=== PATIENT | male | born 1995 | race Caucasian/White ===

== ENCOUNTER 2017-11-09 12:01 | Inpatient (IN) | payer OTHER, MEDICAID ==
--- NOTE | 2017-11-09 12:55 | EDPHY ---
H & P Stated Complaint: SI Source: Patient Exam Limitations: No limitations - Personal History Current Tetanus/Diphtheria Vaccine: Yes Current Tetanus Diphtheria and Acellular Pertussis (TDAP): Yes Tetanus Vaccine Date: < 10 years - Medical/Surgical History Hx Asthma: Yes Hx Chronic Respiratory Disease: No Hx Diabetes: No Hx Cardiac Disease: No Hx Renal Disease: No Hx Cirrhosis: No Hx Alcoholism: No Hx HIV/AIDS: No Hx Splenectomy or Spleen Trauma: No Other PMH: Asthma, Occasional Back Pain. Pervasive Developmental Disorder, Schizophrenia. Obesity - Social History Smoking Status: Never smoked Time Seen by Provider: 11/09/17 12:54 HPI/ROS: HPI: This is a 22-year-old male who presents with Chief Complaint: Suicidal ideation Location:psych Quality: Hearing voices Duration: 1 day Signs and Symptoms: + auditory command hallucinations, no visual hallucinations , + suicidal ideation with NO plan, no homicidal ideation, no paranoia Timing: Acute on chronic Severity: Moderate to severe Context: Patient has a history of schizophrenia, pervasive developmental disorder presents with his father with complaints auditory command hallucinations instructing him to kill himself and hurt himself for the last 2 days. Yesterday he started walking out of his bathroom and started hearing " mild voices of suicide" that are telling him to hurt himself. They told him "to kill yourself and hurt yourself". They did not tell him how to hurt himself. Per his father he has had several incidences where the voices were mumbling, and the patient was unable to understand what they were saying. Has nightmares that cause him to wake up in the middle of the night, believes the nightmares are caused by the voices. Denies hurting himself recently. Denies visual hallucinations. He has been drinking and eating appropriately. Stopped "Prizocen ?" in July, 3 months ago. Has been on the same medication regimen for the last 2 years. Father is unsure of recent trigger. Has not had inpatient psychiatric care for 2 years. Started having SI when he was 13 and worsened when he was 17. Follow[address] by Dr[address] Springer, psychiatrist. Patient has no medical complaints currently. Modifying Factors: None Comment: ROS: see HPI Constitutional: No fever, no chills, no weight loss Eyes: No blurred vision Respiratory: No shortness of breath, no cough Cardiovascular: No chest pain Gastrointestinal: No nausea, no vomiting, no diarrhea Genitourinary: No dysuria Extremities: No myalgias Neurologic: No weakness, no numbness Skin: No rashes Hematologic: No bruising, no bleeding MEDICAL/SURGICAL/SOCIAL HISTORY: Medical history: Asthma, Occasional Back Pain, Pervasive Developmental Disorder , Schizophrenia. Obesity Social history: Father at bedside who is his adult daycare coordinator. CONSTITUTIONAL: Obese, polite and cooperative, young adult white male, awake and alert, no obvious distress HEENT: Atraumatic and normocephalic, PERRL, EOMI. Tympanic membranes clear. Oropharynx clear, no exudate and moist pink mucosa. Airway patent. No lymphadenopathy. No meningismus. Cardiovascular: Normal S1/S2, tachycardia, regular rhythm, without murmur rub or gallop. PULMONARY/CHEST: Symmetrical and nontender. Clear to auscultation bilaterally. Good air movement. No accessory muscle usage. ABDOMEN: Soft, nondistended, nontender, no rebound, no guarding, no peritoneal signs, no masses or organomegaly. No CVAT. EXTREMITIES: 2/2 pulses, strength 5/5, no deformities, no clubbing, no cyanosis or edema. NEUROLOGICAL: no focal neuro deficits. GCS 15. SKIN: Warm and dry, no erythema. no rash. Good capillary refill. PSYCH: Relatively good eye contact, no flight of ideas, organized thought process, good insight and judgment, + auditory command hallucinations, no visual hallucinations, + suicidal ideation with NO plan, no homicidal ideation, no paranoia (Kaz,Terra) Constitutional: Initial Vital Signs Temperature (C) 36.8 C 11/09/17 12:06 Heart Rate 125 H 11/09/17 12:06 Respiratory Rate 18 11/09/17 12:06 Blood Pressure 130/88 H 11/09/17 12:06 O2 Sat (%) 93 11/09/17 12:06 O2 Delivery Mode Room Air Allergies/Adverse Reactions: cat dander Allergy (Verified 11/09/17 12:04) cefaclor [From Ceclor] Allergy (Verified 11/09/17 17:27) Rash Home Medications: Medication Instructions Recorded Docusate Sodium [Colace 100 MG (*)] 200 mg PO HS #0 cap 04/29/16 Multivitamins [Multivitamin (*)] 1 each PO DAILY #0 tab 04/29/16 lamoTRIgine [LamICTAL 100 MG (*)] 100 mg PO DAILY #0 tab 04/29/16 Albuterol [Ventolin Hfa Inhaler] 1 - 2 puffs IH Q4-6PRN PRN 11/09/17 Escitalopram Oxalate [Lexapro 10 10 mg PO DAILY 11/09/17 MG] Ibuprofen [Motrin (*)] 200 mg PO Q8H PRN 11/09/17 LORazepam [Ativan (*)] 0.5 mg PO TID 11/09/17 Modafinil [Provigil 100 mg (*)] 100 mg PO BID 11/09/17 Prazosin HCl [Minipress 1mg (*)] 3 mg PO HS 11/09/17 cloZAPine [Clozaril (*)] 200 mg PO BID 11/09/17 Medical Decision Making ED Course/Re-evaluation: Placed on M1 hold upon arrival due to auditory hallucinations commanding patient to harm himself. Labs and UDS ordered. Given Zyprexa 10 mg x1 1400: Labs and UDS reviewed. Medically clear mental health evaluation 1800: End of shift. Signed over to Dr. Cervantes pending mental health evaluation and final disposition. Patient has remained calm and cooperative throughout the shift. This patient was seen under the supervision of my secondary supervising physician. I evaluated care for this patient independently. Discussed this patient with Dr. Cervantes. (Jolanta Mccurdy) Differential Diagnosis: Differential diagnosis includes but is not limited to delusional, psychosis, schizophrenic paranoid type. (Jolanta Mccurdy) Other Provider: The patient is awaiting psychiatric disposition at 6:20 p.m. 7:15 p.m.: The patient has been accepted for inpatient psychiatric hospitalization at [facility] by Dr. Macias. I have filled out the EMTALA transfer form. (Sathya Cervantes) - Data Points Laboratory Results: Laboratory Results 11/09/17 12:28 11/09/17 12:28 11/09/17 11/09/17 11/09/17 12:28 12:28 12:28 WBC 5.23 10^3/uL 10^3/uL (3.80-9.50) RBC 4.67 10^6/uL 10^6/uL (4.40-6.38) Hgb 14.7 g/dL g/dL (13.7-17.5) Hct 42.6 % % (40.0-51.0) MCV 91.2 fL fL (81.5-99.8) MCH 31.5 pg pg (27.9-34.1) MCHC 34.5 g/dL g/dL (32.4-36.7) RDW 13.3 % % (11.5-15.2) Plt Count 141 10^3/uL L 10^3/uL (150-400) MPV 14.2 fL H fL (8.7-11.7) Neut % (Auto) 56.9 % % (39.3-74.2) Lymph % (Auto) 25.0 % % (15.0-45.0) Mclennan % (Auto) 16.3 % H % (4.5-13.0) Eos % (Auto) 0.6 % % (0.6-7.6) Baso % (Auto) 0.8 % % (0.3-1.7) Nucleat RBC Rel Count 0.0 % % (0.0-0.2) Absolute Neuts (auto) 2.98 10^3/uL 10^3/uL (1.70-6.50) Absolute Lymphs (auto) 1.31 10^3/uL 10^3/uL (1.00-3.00) Absolute Monos (auto) 0.85 10^3/uL H 10^3/uL (0.30-0.80) Absolute Eos (auto) 0.03 10^3/uL 10^3/uL (0.03-0.40) Absolute Basos (auto) 0.04 10^3/uL 10^3/uL (0.02-0.10) Absolute Nucleated RBC 0.00 10^3/uL 10^3/uL (0-0.01) Immature Gran % 0.4 % % (0.0-1.1) Immature Gran # 0.02 10^3/uL 10^3/uL (0.00-0.10) Sodium 142 mEq/L mEq/L (135-145) Potassium 4.3 mEq/L mEq/L (3.5-5.2) Chloride 103 mEq/L mEq/L (97-110) Carbon Dioxide 25 mEq/l mEq/l (22-31) Anion Gap 14 mEq/L mEq/L (8-16) BUN 13 mg/dL mg/dL (7-23) Creatinine 0.8 mg/dL mg/dL (0.7-1.3) Estimated GFR > 60 Glucose 100 mg/dL mg/dL (70-100) Calcium 9.7 mg/dL mg/dL (8.5-10.4) Urine Opiates Screen NEGATIVE (NEGATIVE) Urine Barbiturates NEGATIVE (NEGATIVE) Ur Phencyclidine Scrn NEGATIVE (NEGATIVE) Ur Amphetamine Screen NEGATIVE (NEGATIVE) U Benzodiazepines Scrn NEGATIVE (NEGATIVE) Urine Cocaine Screen NEGATIVE (NEGATIVE) U Marijuana (THC) Screen NEGATIVE (NEGATIVE) Ethyl Alcohol < 10 mg/dL mg/dL (0-10) Medications Given: Discontinued Medications Olanzapine (Zyprexa Zydis) 10 mg PO EDNOW ONE Stop: 11/09/17 14:02 Last Admin: 11/09/17 14:48 Dose: 10 mg Departure - Departure Disposition: [facility] IP Clinical Impression: Auditory hallucinations Schizophrenia Qualifiers: Schizophrenia type: schizophreniform disorder Qualified Code(s): 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
[2017-11-09 13:07] LABS: PLATELET COUNT 141 10^3/uL (150-400)
[2017-11-09] MEDS ORDERED: OLANZapine DISINTEGR 10 MG TAB PO ONE (14:01)
[2017-11-09] MEDS ORDERED: ALBUTEROL 60 PUFFS/8 GM MDI IH PRN (21:42)
[2017-11-09] MEDS ORDERED: MAGNESIUM HYDROXIDE 30 ML UDCUP PO PRN (21:48)
[2017-11-09] MEDS ORDERED: MAG HYDROX/AL HYDROX/SIMETH 30 ML UDCUP PO PRN (21:48)
[2017-11-09] MEDS ORDERED: IBUPROFEN 200 MG TAB PO PRN (21:50)
[2017-11-09] MEDS ORDERED: MELATONIN 3 MG TAB PO SCH (22:00)
[2017-11-09] MEDS ORDERED: cloZAPine 100 MG TAB PO SCH (22:15)
[2017-11-09] MEDS: LORazepam 0.5 MG TAB PO SCH (22:20)
[2017-11-09] MEDS: DOCUSATE SODIUM 100 MG CAP PO SCH (22:20)
[2017-11-09] MEDS: BENZTROPINE MESYLATE 1 MG TAB PO SCH (22:21)
[2017-11-09] MEDS ORDERED: MELATONIN 3 MG TAB PO PRN (22:30)
[2017-11-10] MEDS: LORazepam 0.5 MG TAB PO SCH (08:44)
[2017-11-10] MEDS: BENZTROPINE MESYLATE 1 MG TAB PO SCH ×2 (08:44→19:11)
[2017-11-10] MEDS: ESCITALOPRAM OXALATE 10 MG TAB PO SCH (08:45)
[2017-11-10] MEDS: lamoTRIgine 100 MG TAB PO SCH (08:45)
[2017-11-10] MEDS: MULTIVITAMINS 1 EACH TAB PO SCH (08:45)
[2017-11-10] MEDS ORDERED: LORazepam 0.5 MG TAB PO PRN (14:27)
--- NOTE | 2017-11-10 15:44 | BCON ---
[f rep ] BEHAVIORAL HEALTH CONSULTATION INTERNAL MEDICINE CONSULTATION DATE OF CONSULTATION: 11/10/2017 REFERRING PHYSICIAN: Cesar Macias MD REASON FOR REFERRAL: Medical clearance for inpatient behavioral health stay. HISTORY OF PRESENT ILLNESS: This patient was brought to the emergency department with his father. He had increasing command auditory hallucinations, ordering him to harm himself. He was evaluated by the mental health team and admitted for further psychiatric care. Currently, he complains of feeling tired. He is otherwise without acute complaints. PAST MEDICAL HISTORY: 1. Schizoaffective disorder. 2. Pervasive developmental delay. 3. Asthma. 4. Obesity. PAST SURGICAL HISTORY: He has had wisdom teeth extraction. MEDICATIONS: Prior to admission: 1. Modafinil 100 mg p.o. twice daily. 2. Prazosin 3 mg p.o. at bedtime, though he has reportedly not been compliant with this medication. 3. Lamotrigine 100 mg p.o. daily. 4. Multivitamin 1 p.o. daily. 5. Lorazepam 0.5 mg p.o. three times daily. 6. Ibuprofen 200 mg p.o. q.8 hours p.r.n. 7. Escitalopram 10 mg p.o. daily. 8. Clozapine 200 mg p.o. twice daily. 9. Docusate sodium 200 mg p.o. at bedtime. 10. Albuterol 1-2 puffs q.4-6 hours p.r.n. ALLERGIES: Listed to cat dander and to Cefaclor. SOCIAL HISTORY: He lives with his parents. He does not work. He is not in school. He is a nonsmoker and does not use alcohol. FAMILY HISTORY: Noncontributory. REVIEW OF SYSTEMS: He denies cough or dyspnea. He reports he has head congestion but no sore throat. He has an occasional cough. He thinks he sleeps well. He is not sure if he snores or not. He often does not feel refreshed in the morning when he awakens. Otherwise, a 10-point review of systems is negative. PHYSICAL EXAM: VITAL SIGNS: Blood pressure last night was 133/90, heart rate was 113, respiratory rate was 14, oxygen saturation is 93% on room air. Temperature is 36.3 degrees centigrade. GENERAL: This is an obese man, appears his chronologic age, lying in bed in a dark room. He awakens to verbal stimulation and sits up and is cooperative with the exam. HEENT: Extraocular movements are intact. Pupils are equal, round, reactive to light. Mucous membranes are moist. Dentition is in good condition. He has a crowded airway, Mallampati class 4. NECK: Supple. HEART: There is a regular rate and rhythm with no murmurs, rubs, or gallops. LUNGS: Clear to auscultation bilaterally. ABDOMEN: Benign. EXTREMITIES: There is no cyanosis or clubbing. There is trace to 1+ edema bilaterally to the lower extremities. NEUROLOGIC: He is alert and oriented x3. Cranial nerves 2-12 are grossly intact. There is no focal weakness. Sensation is intact to light touch. LABORATORY STUDIES: Drawn in the emergency department, hematology revealed an overall normal CBC but for a slightly low platelet count at 141. Serum chemistry revealed normal renal function and electrolytes. Toxicology screen in the serum was negative for ethyl alcohol and in the urine was negative for any substances of abuse. ASSESSMENT/RECOMMENDATIONS: 1. Mental health issues, pending further evaluation and management per Psychiatry and the mental health team. 2. Asthma, this is likely a mild asthma. He has no symptoms at present. Albuterol metered-dose inhaler has been ordered on a p.r.n. basis and this is appropriate. 3. Obesity. Per chart review, he appears to have lost considerable weight since his last admission, which is a positive development for him. Continue to encourage dietary compliance and exercise if possible. 4. Thrombocytopenia is very mild. Doubt that it merits consideration of adverse effect of clozapine. Most likely, he has routine monthly CBC draws as an outpatient. 5. Upper respiratory infection, not very symptomatic. No particular treatment is indicated at this time. 6. Possible obstructive sleep apnea. Given his body habitus, his crowded airway and his sleepiness in the mornings when he awakens, if it has not already been done, it would be worthwhile for him to have a sleep study to rule out obstructive sleep apnea. I see no medical complications to this patient's continued stay on the inpatient behavioral health unit or to any psychiatric medications or procedures. Thank you very much for including me in the care of this patient, and please do not hesitate to contact me or the hospitalist service should there be need for further medical evaluation. /[id number]/MODL MTDD
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
[2017-11-10] MEDS: cloZAPine 100 MG TAB PO SCH (19:11)
[2017-11-10] MEDS: DOCUSATE SODIUM 100 MG CAP PO SCH (19:12)
[2017-11-10] MEDS ORDERED: PRAZOSIN HCL 1 MG CAP PO SCH (21:00)
[2017-11-11] MEDS: BENZTROPINE MESYLATE 1 MG TAB PO SCH ×2 (08:53→19:24)
[2017-11-11] MEDS: lamoTRIgine 100 MG TAB PO SCH (08:54)
[2017-11-11] MEDS: MULTIVITAMINS 1 EACH TAB PO SCH (08:54)
[2017-11-11] MEDS: ESCITALOPRAM OXALATE 10 MG TAB PO SCH (08:54)
[2017-11-11] MEDS ORDERED: guaiFENesin 600 MG TAB.ER PO PRN (13:15)
--- NOTE | 2017-11-11 14:51 | SOAPPROG ---
SOAP Progress Note Assessment/Plan: Assessment: 22 yo man with h/o Schizophrenia, PDD, IDD, ASD. He was admitted from ED d/t CAH telling him to kill himself, though he denied any intent or plan to act on these commands. Plan: 11/11/17 14:32 1. and CC had very long phone conversation with both MOC, Amy French, and [facility], Jose Singhpopeye. Both parents had lots of questions about the potential adverse effects of patient's current medications and whether there were alternative medications/treatments with less risks. explained the r/b/se's of clozaril and discussed how it was the treatment of "last resort" only after patient has failed trials of at least 2 other antipsychotic medications. Both parents insisted that patient has only been on Risperdal prior to Clozaril, and that Dr. Springer "insisted" on trying Clozaril before trial of another antipsychotic med. stressed the importance of a weight management program to help patient lose weight which is causing medical problems including back pain, ADRIENNE and HTN. POC agreed to contact Dr. Duke's, PCP's, office and schedule time to discuss weight control and possibly consult with dietitian or nutrition counselor. MD also recommended talking to PCP about starting patient on Metformin as prophylactic intervention to reduce likelihood of developing diabetes d/t Clozaril and associated weight gain. Parents said they would contact Dr. Duke's office and make an appt. Parents also asked for referral for new prescriber. They said they would prefer a provider who took Medicaid. Luis, the CC, sent referral to [facility] for an intake appointment. Parents said they would like to see a prescriber at [facility] and explore options for individual and group therapy. Parents state patient had been attending day treatment program through , but hadn't gone in "several weeks" b/c he c/ o "not wanting to go" and "feeling too tired." MD strongly encouraged patient to attend as many programs, outings, day trips and social activities as possible to increase his physical activity, increase his social relationships and give him meaningful things to do each day. This was the most effective way to lower stress and increase satisfaction which are likely to reduce frequency and intensity of psychotic and mood related sxs. Parents acknowledged that when patient is engaged in social activities and "has something to do every day," he is much less likely to report "mumbling voices," CAH, SI and have trouble with sleep/nightmares. MD explained patient was likely to need fewer meds and lower doses of meds if he was also receiving appropriate non-pharmacological interventions. Parents agreed they would like to try more interventions rather than "add more pills all the time." 2. Luis COHEN, sent referral for intake appointment to [facility] 3. Parents agreed to encourage patient to attend [facility] at least 4 days/week. 4. Parents agreed to contact PCP's office to discuss weight, HTN, ADRIENNE, metformin , exercise. 5. Parents agreed to hold Clozaril dose at 300mg and would eventually like to taper him off Clozaril and switch patient back to Risperdal or try another atypical if needed. They are concerned about monitoring blood and the risks associated with taking Clozaril. They would like to d/w new provider at [facility]. 6. Parents agree to d/c Provigil d/t risks of drug interactions and SE's. Also since patient will be taking all his Clozaril at , parents agree with MD that there is less likelihood of daytime sedation from Clozaril. MD also encouraged planned activities and daily routine to keep patient physically active and occupied during day. 7. Parents agree with MD recommendation to use Ativan sparingly, rather than TID scheduled as currently prescribed. They admit there are other ways to help patient deal with anxiety, such as go for a walk, listen to music, read a book, watch TV, go for a hike, ride his bike, walk to park, etc. 8. POC will pick patient up tomorrow at noon. Subjective: Met with patient, reviewed chart and d/w staff. Patient says he feels less groggy, tired and sedated this AM. He is sitting on couch watching the [employer]. Since he didn't get AM dose of Clozaril, patient seems more alert and energetic. Patient says he feels "fine" and denies hearing any voices, no CAH, no thoughts of suicide. He says that whenever he comes to hospital the "voices get scared and go away." However, patient says he doesn't want to "have to come to hospital" every time he hears voices. talks to patient about other places he might go to feel safe and get rid of voices. mentions the [facility], talking to his CM at [facility], going to see friends, and the possibility of having new therapist or group to attend at [facility]. He says "it would be nice" to have options other than hospital when he feels overwhelmed. and CC had very long phone conversation with both MOC, Amy French, and [facility] , Jose French. Both parents had lots of questions about the potential adverse effects of patient's current medications and whether there were alternative medications/treatments with less risks. explained the r/b/se's of clozaril and discussed how it was the treatment of "last resort" only after patient has failed trials of at least 2 other antipsychotic medications. Both parents insisted that patient has only been on Risperdal prior to Clozaril, and that Dr. Springer "insisted" on trying Clozaril before trial of another antipsychotic med. stressed the importance of a weight management program to help patient lose weight which is causing medical problems including back pain, ADRIENNE and HTN. POC agreed to contact Dr. Duke's, PCP's, office and schedule time to discuss weight control and possibly consult with dietitian or nutrition counselor. MD also recommended talking to PCP about starting patient on Metformin as prophylactic intervention to reduce likelihood of developing diabetes d/t Clozaril and associated weight gain. Parents said they would contact Dr. Duke's office and make an appt. Parents also asked for referral for new prescriber. They said they would prefer a provider who took Medicaid. Luis, the CC, sent referral to [facility] for an intake appointment. Parents said they would like to see a prescriber at [facility] and explore options for individual and group therapy. Parents state patient had been attending day treatment program through [facility], but hadn't gone in "several weeks" b/c he c/ o "not wanting to go" and "feeling too tired." MD strongly encouraged patient to attend as many programs, outings, day trips and social activities as possible to increase his physical activity, increase his social relationships and give him meaningful things to do each day. This was the most effective way to lower stress and increase satisfaction which are likely to reduce frequency and intensity of psychotic and mood related sxs. Parents acknowledged that when patient is engaged in social activities and "has something to do every day," he is much less likely to report "mumbling voices," CAH, SI and have trouble with sleep/nightmares. explained patient was likely to need fewer meds and lower doses of meds if he was also receiving appropriate non-pharmacological interventions. Parents agreed they would like to try more interventions rather than "add more pills all the time." 2. Luis COHEN, sent referral for intake appointment to [facility] Objective: Vital Signs Temp Pulse Resp BP Pulse Ox 36.7 C 90 14 134/72 H 92 11/11/17 06:00 11/11/17 06:00 11/11/17 06:00 11/11/17 06:00 11/11/17 06:00 MSE: Affect: Euthymic Mood: "Really good" TP: Linear TC: No SI/HI, denies any CAH,AH,VH Insight/Judgment: Poor - Time Spent With Patient Time Spent With Patient: 35" - Pending Discharge Pending Discharge Within 24 Hours: No Pending Discharge Within 48 Hours: No ICD10 Worksheet Patient Problems: Problems Problem Status Onset Auditory hallucinations Acute Schizophrenia Acute Autism Acute Schizoaffective disorder Acute
[2017-11-11] MEDS: DOCUSATE SODIUM 100 MG CAP PO SCH (19:24)
[2017-11-11] MEDS: cloZAPine 100 MG TAB PO SCH (19:24)
[2017-11-12 06:46] VITALS: BP 124/87; PULSE 97; RESP 17; TEMP 98.3; O2SAT 91
[2017-11-12] MEDS: ESCITALOPRAM OXALATE 10 MG TAB PO SCH (08:27)
[2017-11-12] MEDS: lamoTRIgine 100 MG TAB PO SCH (08:27)
[2017-11-12] MEDS: MULTIVITAMINS 1 EACH TAB PO SCH (08:27)
[2017-11-12] MEDS: BENZTROPINE MESYLATE 1 MG TAB PO SCH (08:27)
--- NOTE | 2017-11-12 15:03 | BDS ---
[f rep st] BEHAVIORAL HEALTH DISCHARGE SUMMARY REASON FOR ADMISSION: The patient is a 22-year-old man brought to [facility] voluntarily and accompanied by his father. The patient was placed on an M1 hold which states "patient states he has been hearing voices telling him to hurt and kill himself since yesterday. He has a history of schizophrenia, and he is gravely disabled and an eminent danger to himself." Father told hydroelectric station operator in the ED that the patient has been complaining of command auditory hallucinations x2 days, and he says that the voices are telling him to kill and hurt himself. Yesterday, he started walking out of his bathroom and started hearing "mild voices of suicide" that were telling him to hurt himself. They did not tell him how to hurt himself. According to his father, the patient has had several incidents where the voices were mumbling, and the patient was unable understand what they were saying. The patient reported nightmares which caused him to wake up in the middle of the night. He believes the nightmares are caused by the voices. Patient denies hurting himself recently. He has no prior history of self-harm or suicide. The patient denied any visual hallucinations. According to his parents, the patient has been eating and drinking appropriately. The patient has not needed any inpatient psych hospitalization for approximately 2 years. ADMITTING DIAGNOSES: 1. Schizoaffective disorder, by history. 2. Pervasive developmental disorder. 3. Autism spectrum disorder. 4. Intellectual disability disorder. 5. Psychosocial stressors include developmental delay, limited social support, unemployed, lives with his family, chronic mental illness. ADMITTING PHYSICAL EXAMINATION: Performed by Dr. Garo Holloway, revealed no acute physical findings. ADMISSION LABS: Done at the [facility] ED: White cell count was 5.23, hemoglobin was 14.7, hematocrit 42.6, platelet count was 141, absolute neutrophil count was 2.98. Sodium level was 142, potassium was 4.3, chloride 103, BUN 13, creatinine 0.8, glucose 100, calcium 9.7. Thyroid was not checked. He had an elevated TSH of 4.96 on 04/25/2016, when he was last here. His urine drug screen was negative for all substances. Blood alcohol level was less than 10. He did get a followup TSH on 11/10/2017 that was 3.598 which was within normal limits. HOSPITAL COURSE: [facility] M[facility] hold. When the MD saw the patient on his first full day of admission, the patient was very lethargic, sedated, sleeping all morning. In fact, he was lying in bed. When the MD went to talk with him, he was difficult to arouse. He kept his eyes closed. Did not make eye contact but was linear and goal directed. Alert and oriented x4. He did respond to questions appropriately. He did not know what medications he took or what the doses were and could not remember dates or times when he had last seen Dr. Springer, his outpatient psychiatrist. However, he did tell the this MD that he was no longer hearing any voices. He denied any mumbling. He also denied any command auditory hallucinations. He denied all psychotic symptoms. There was no evidence of lexus. He denied feeling depressed, sad, hopeless, or helpless. He also denied having any thoughts, plans, or intents to hurt himself or anyone else. He said he was no longer thinking about suicide, and he was no longer feeling scared or afraid because the voices had "stopped." This MD reviewed previous records from his last hospitalization on which was on 04/26/2016. The patient was seen by Dr. Teena Barry at that time. She noted that the patient presented at that time for similar reasons that he was complaining of command auditory hallucinations telling him to kill himself "by hanging," but Dr. Barry said that, when she saw the patient on his 1st day of admission, he was denying all psychotic symptoms. He denied having auditory hallucinations and said that he was not having any suicidal thoughts. Throughout his stay, she said he continued to deny all psychotic symptoms. No recurrence of auditory hallucinations and no thoughts of suicide which was very similar to how the patient presented here. When the MD explored that similarity between his 2 admissions with the patient, he said that he felt like "when I come to the hospital, the voices get scared, and they go away." Patient said that he always feels safe in the hospital, but "I don't like coming here." MD had a long conversation with the patient about other options that could make him feel safe and make the voices go away, and patient was able to come up with a list of places that he could go, people that he could talk to, including his caser at [facility], and also some of his friends. When he goes on outings with the friends through [employer] [facility] Day treatment program, the patient says that he feels "really good," and is always in a good mood and does not get scared or afraid and does not have the voices. During this hospitalization, the MD and the lead care manager had a long phone conversation with both the patient's mother and his father. Both parents had lots of questions about the potential adverse affects of the patient's current medications and whether there were alternative medications and treatments with less risk. MD explained the risks, benefits, and side effects of Clozaril and discussed how it was a treatment of "last resort," only after a patient has failed trials of at least 2 other antipsychotic medications. Both parents insisted that the patient has only been on Risperdal prior to Clozaril and that Dr. Springer "insisted" on trying Clozaril before trial of another antipsychotic medication. This MD stressed the importance of weight management program to help the patient lose weight, which has been causing him medical problems according to the parents, including back pain, possible obstructive sleep apnea, for which he is being evaluated by Dr. Michael, his outpatient PCP, and hypertension. Parents agreed to contact Dr. Michael's office and schedule a time to discuss weight control and possibly consult with a dietitian or nutrition counselor. MD also recommended talking to PCP about starting patient on metformin as a prophylactic intervention to reduce likelihood of developing diabetes due to Clozaril and associated weight gain. Parents said they would contact Dr. Michael's office and make an appointment. Parents also asked for referral for new prescriber. They said they would prefer a provider who took Medicaid. Heath, the lead care manager, sent a referral to [facility] for an intake appointment. Parents that they would like to see a prescriber at [facility] and explore options for individual and group therapy there. Parents state the patient has been attending day treatment program through [facility] but had not gone in "several weeks" because he complained of "not wanting to go" and "feeling too tired." MD strongly encouraged the patient to attend as many programs, outings, day trips, and social activities as possible to increase his physical activity, increase his social relationships, and given meaningful things to do each day. MD explained that this was one of the most effective ways to lower his stress and increase his satisfaction which was likely to reduce the frequency and intensity of psychotic and mood-related symptoms. Parents acknowledged that, when the patient is engaged in social activities and "has something to do every day" he is much less likely to report "mumbling voices," command auditory hallucinations, SI, and have trouble with sleep and nightmares. MD explained that the patient was likely to need fewer medications and lower doses of meds if he was also receiving appropriate nonpharmacological interventions. Parents agreed they would like to try more interventions rather than "add more pills all the time." Parents agree to encourage the patient to attend [facility] at least 4 days a week. Parents also agreed to contact the PCP's office to discuss weight, hypertension, obstructive sleep apnea, metformin, and exercise. Parents agree to hold the Clozaril dose at 300 mg p.o. q.h.s. and would eventually like to taper him off Clozaril and switch him back to Risperdal or to try another atypical if needed. They are concerned about monitoring his blood and the risk associated with taking Clozaril. They would like to discuss with a new provider at [facility]. Parents also agreed to discontinue Provigil due to the risk of drug interactions and side effects. Also, since the patient will be taking all of his Clozaril at h.s., the parents agree with the MD that there is less likelihood of daytime sedation from Clozaril which is the reason that parents said Dr. Springer had prescribed Provigil in the first place. MD also encourage planned activities and a daily routine to keep the patient physically active and occupied during the day. Parents agree with the MD's recommendation to use Ativan sparingly. MD discussed the risks, benefits, side effects, and drug interactions between the Ativan, Clozaril, and other medications that cause sedation, decreased respiratory drive. MD said that it was particularly inappropriate to be taking Clozaril and Ativan in the a.m. and taking Provigil in the morning and at noon in order to counteract the sedating effects of those 2 medications which the patient does not need to be taking in the morning, and the parents state that he does not always even need to be taking the Ativan, but they give it to him anyway because it is currently a scheduled medication. They admit that there are other ways to help the patient deal with his anxiety, and we discussed options, including going for a walk, listening to music, reading a book, watching TV, going for a hike, riding his bike, walking to a park. Parents said that they were willing to encourage the patient to do all these things rather than only taking medications when he is feeling anxious, stressed. Patient, throughout his stay, presented calm, cooperative, pleasant after his 1st day on the unit and his a.m. dose of Clozaril was discontinued and his Ativan was switched to p.r.n. Even without the Provigil, the patient had no problem waking up in the morning. He went to breakfast. He attended all groups during the day. He stayed out in the day room, interacted with peers , watched Olympics on the TV. He had an euthymic affect. He did not endorse any psychotic symptoms. He denied command auditory hallucinations. He denied voices telling him to harm himself, and he said that he had no thoughts of suicide or any thoughts, plans, or intents to hurt himself or anyone else. CONDITION AT DISCHARGE: The patient was stable. His affect was euthymic. He was appropriate. As previously mentioned, he was compliant with medications and denied having any psychotic symptoms or feeling depressed and no thoughts of suicide. DISCHARGE MEDICATIONS: The patient was discharged on the following medications : Albuterol 1-2 puffs q.4 hours p.r.n., Cogentin 0.5 mg p.o. b.i.d., Clozaril 300 mg p.o. q.h.s., docusate 200 mg p.o. q.h.s. p.r.n., Lexapro 10 mg p.o. daily , Lamictal 100 mg p.o. daily, Ativan 0.5 mg p.o. t.i.d. p.r.n. Patient has all of these medications at home. The only change was to discontinue his Provigil and to lower his dose of Clozaril from 200 mg b.i.d. to 300 mg p.o. q.h.s. He was given a script for Clozaril 100 mg tablets take 3 tabs p.o. q.h.s., 60 tablets, with no refills, although parents state that he has all of his medications at home. DISCHARGE DIAGNOSES: 1. Schizoaffective disorder, by history. 2. Pervasive developmental disorder. 3. Autism spectrum disorder by history. 4. Intellectual disability disorder. 5. Psychosocial stressors, including developmental delay, limited social support, unemployed, lives with his family, chronic mental illness. ATTITUDE AT DISCHARGE: Patient was excited to be going home, and he was agreeable to seeing providers at [facility]. He thought it was "a good idea." FOLLOWUP: Patient has an intake appointment at [facility] at 2:30 on day of discharge, and this MD also called the [facility] and left a message on confidential voicemail for Dr. Les Michael to update him on the patient's hospital course and discharge instructions and recommendations for followup care, and parents said that they would be contacting Dr. Michael's office to schedule an appointment. LEGAL COURSE: The patient was changed to voluntary status upon expiration of his M1 hold prior to discharge. /[id number]/[id number]
== END 2017-11-12 14:20 | disposition home or self-care (01) | DRG 885 ==
LOC: BBEH 21:00
PROVIDERS: ADMIT Psychiatry & Neurology Psychiatry; ATTEND Psychiatry & Neurology Psychiatry
DX: F25.9 Schizoaffective disorder, unspecified (principal); F84.0 Autistic disorder; F79 Unspecified intellectual disabilities; J45.909 Unspecified asthma, uncomplicated; E66.9 Obesity, unspecified; G47.33 Obstructive sleep apnea (adult) (pediatric)
CPT/HCPCS: 80305; G0480